=== PATIENT | female | born 1955 | race Caucasian/White ===

== ENCOUNTER 2017-07-29 14:25 | Inpatient (IN) | payer OTHER ==
[2017-07-29 17:18] LABS: Basophils % (Auto) 0.5 % (0.0-1.8); Eosinophils % (Auto) 0.4 % (0.0-4.3); Hematocrit 39.9 % (30.3-42.9); Hemoglobin 14.2 gm/dl (10.1-14.3); Mean Corpuscular HGB Conc 36 % (30-34); Mean Corpuscular Hemoglobin 32 pg (28-32); Mean Corpuscular Volume 91 fl (79-97); Platelet Count 266 K/mm3 (140-440); Red Cell Distribution Width 12.1 % (13.2-15.2)
[2017-07-29 17:36] LABS: INR 1.01 (0.87-1.13)
[2017-07-29 17:38] LABS: Partial Thromboplastin Time 30.9 Sec. (24.2-36.6)
[2017-07-29 17:40] LABS: Alanine Aminotransferase 85 units/L (7-56); Albumin 4.5 g/dL (3.9-5); Albumin/Globulin Ratio 1.6 %; Alkaline Phosphatase 137 units/L (35-129); Anion Gap 17 mmol/L; BUN/Creatinine Ratio 16; Blood Urea Nitrogen 8 mg/dL (7-17); Calcium 9.2 mg/dL (8.4-10.2); Carbon Dioxide 29 mmol/L (22-30); Chloride 96.3 mmol/L (98-107); Glucose 99 mg/dL (65-100); Potassium 4.1 mmol/L (3.6-5.0); Sodium 138 mmol/L (137-145); Total Protein 7.3 g/dL (6.3-8.2)
--- NOTE | 2017-07-29 19:48 | Cat Scan Report ---
FINAL REPORT EXAM: CT HEAD/BRAIN WO CON HISTORY: headache TECHNIQUE: CT head without contrast PRIORS: None. FINDINGS: No acute intra-axial or extra-axial hemorrhage is identified. There is no evidence of midline shift or mass effect. The ventricles and sulci are within normal limits. Harkins-white matter differentiation is intact. No acute parenchymal abnormalities seen. Bony calvarium is grossly intact. Visualized portions of the mastoids and paranasal sinuses are unremarkable. IMPRESSION: Negative CT head
[2017-07-29 20:11] LABS: Bilirubin,Urine NEG (Negative); Blood,Urine SM (Negative); Ketones,Urine NEG (Negative); Leukocyte Esterase,Urine TR (Negative); Nitrite,Urine NEG (Negative); Protein,Urine <15 mg/dL mg/dL (Negative); Urobilinogen,Urine < 2.0 mg/dL (<2.0)
[2017-07-29] MEDS ORDERED: PLAVIX PO ONE (20:12)
--- NOTE | 2017-07-29 20:14 | Emergency Department Report ---
HPI - General Chief Complaint: Headache Time Seen by Provider: 07/29/17 19:17 - HPI HPI: Room 30 The patient is a 62 -year-old female presented with a chief complaint of headache and left-sided numbness. The patient states her symptoms began 2 days ago with back pain described as cramping and aching in nature associated with a global headache. Patient states she also had chills causing her to shake. The patient states this morning at 04:00 she continued to have chills but then noticed left hand and left foot paresthesia. The patient also noticed redness of the left eye at this time but denies pain. Patient denies dysarthria. Location: [See above] Duration: Constant since 04:00 Quality: Numbness Severity: Moderate Modifying factors: [see above] Context: [see above] Mode of transportation: [not driving] ED Past Medical Hx - Past Medical History Previous Medical History?: Yes Hx Hypertension: Yes Additional medical history: Graves' disease - Surgical History Past Surgical History?: Yes Hx Breast Surgery: Yes (Cyst removed from right breast) Additional Surgical History: thyroid. occulo-plastic surgery. right foot surgery - Family History Family history: no significant - Social History Smoking Status: Never Smoker Substance Use Type: Alcohol (occasional) - Medications Home Medications: Home Medications Medication Instructions Recorded Confirmed Last Taken Type Cetirizine HCl [ZyrTEC] 10 mg PO ONCE 02/04/16 02/04/16 Unknown History Zolpidem [Ambien] 5 mg PO QHS PRN 02/04/16 02/04/16 Unknown History Potassium Chloride [K-Dur] 20 meq PO QDAY #30 tablet 02/07/16 Unknown Rx Triamter/Hctz 37.5-25 mg 0.5 each PO QDAY #15 tablet 02/07/16 Unknown Rx [Maxzide-25] ED Review of Systems ROS: Stated complaint: HEADACHE, LEFT EYE RED,ABDOMINAL PAIN Other details as noted in HPI Comment: All other systems reviewed and negative Constitutional: chills. denies: fever Eyes: other (subconjunctival hemorrhage). denies: eye pain, eye discharge, vision change ENT: denies: ear pain, throat pain Respiratory: denies: cough, shortness of breath, wheezing Cardiovascular: denies: chest pain, palpitations Endocrine: no symptoms reported Gastrointestinal: denies: abdominal pain, nausea, diarrhea Genitourinary: denies: urgency, dysuria, discharge Musculoskeletal: denies: back pain, joint swelling, arthralgia Skin: denies: rash, lesions Neurological: headache, paresthesias Psychiatric: denies: anxiety, depression Hematological/Lymphatic: denies: easy bleeding, easy bruising Physical Exam - Physical Exam Vital Signs: Vital Signs 07/29/17 15:01 Temperature 99.7 F H Pulse Rate 87 Respiratory 18 Rate Blood Pressure 154/68 O2 Sat by Pulse 98 Oximetry Physical Exam: GENERAL: The patient is well-developed well-nourished female lying on stretcher not appearing to be in acute distress. [] HEENT: Normocephalic. Atraumatic. Extraocular motions are intact. Patient has moist mucous membranes. OS: Subconjunctival hemorrhage along the sclera from the 7:00 to 11 o'clock position NECK: Supple. No meningitic signs are noted. Trachea midline CHEST/LUNGS: Clear to auscultation. There is no respiratory distress noted. HEART/CARDIOVASCULAR: Regular. There is no tachycardia. There is no gallop rub or murmur. ABDOMEN: Abdomen is soft, nontender. Patient has normal bowel sounds. There is no abdominal distention. SKIN: There is no rash. There is no edema. There is no diaphoresis. NEURO: The patient is awake, alert, and oriented. The patient is cooperative. The patient has no focal neurologic deficits. The patient has normal speech. Cranial nerves II through XII grossly intact, no drift MUSCULOSKELETAL: There is no evidence of acute injury. ED Course Vital Signs 07/29/17 15:01 Temperature 99.7 F H Pulse Rate 87 Respiratory 18 Rate Blood Pressure 154/68 O2 Sat by Pulse 98 Oximetry ED Medical Decision Making - Lab Data Result diagrams: 07/29/17 17:00 07/29/17 17:00 Laboratory Tests 07/29/17 07/29/17 07/29/17 17:00 17:00 17:00 WBC 6.0 RBC 4.40 Hgb 14.2 Hct 39.9 MCV 91 MCH 32 MCHC 36 H RDW 12.1 L Plt Count 266 Lymph % (Auto) 23.9 [place] % (Auto) 6.5 Eos % (Auto) 0.4 Baso % (Auto) 0.5 Lymph # 1.4 [place] # 0.4 Eos # 0.0 Baso # 0.0 Seg Neutrophils % 68.7 Seg Neutrophils # 4.1 PT INR APTT Sodium 138 Potassium 4.1 Chloride 96.3 L Carbon Dioxide 29 Anion Gap 17 BUN 8 Creatinine 0.5 L Estimated GFR > 60 BUN/Creatinine Ratio 16 Glucose 99 Calcium 9.2 Total Bilirubin 0.30 AST 54 H ALT 85 H Alkaline Phosphatase 137 H Troponin T < 0.010 Total Protein 7.3 Albumin 4.5 Albumin/Globulin Ratio 1.6 TSH 1.360 Urine Color Urine Turbidity Urine pH Ur Specific [place] Urine Protein Urine Glucose (UA) Urine Ketones Urine Blood Urine Nitrite Urine Bilirubin Urine Urobilinogen Ur Leukocyte Esterase Urine WBC (Auto) Urine RBC (Auto) U Epithel Cells (Auto) 07/29/17 07/29/17 17:00 19:58 WBC RBC Hgb Hct MCV MCH MCHC RDW Plt Count Lymph % (Auto) [place] % (Auto) Eos % (Auto) Baso % (Auto) Lymph # [place] # Eos # Baso # Seg Neutrophils % Seg Neutrophils # PT 13.8 INR 1.01 APTT 30.9 Sodium Potassium Chloride Carbon Dioxide Anion Gap BUN Creatinine Estimated GFR BUN/Creatinine Ratio Glucose Calcium Total Bilirubin AST ALT Alkaline Phosphatase Troponin T Total Protein Albumin Albumin/Globulin Ratio TSH Urine Color Yellow Urine Turbidity Clear Urine pH 7.0 Ur Specific [place] 1.010 Urine Protein <15 mg/dl Urine Glucose (UA) Neg Urine Ketones Neg Urine Blood Sm Urine Nitrite Neg Urine Bilirubin Neg Urine Urobilinogen < 2.0 Ur Leukocyte Esterase Tr Urine WBC (Auto) 13.0 H Urine RBC (Auto) 2.0 U Epithel Cells (Auto) 2.0 - EKG Data -: EKG Interpreted by Me EKG shows normal: sinus rhythm Rate: normal - EKG Data When compared to previous EKG there are: no significant change Interpretation: unchanged when compared t (07/15/2010) - Radiology Data Radiology results: report reviewed (CT head), image reviewed (chest x-ray, CT head) interpreted by me: Chest x-ray-no focal infiltrates, no pneumothorax CT head (read by radiologist)-negative CT head - Differential Diagnosis CVA, subconjunctival hemorrhage, pyelonephritis, UTI Critical care attestation.: If time is entered above; I have spent that time in minutes in the direct care of this critically ill patient, excluding procedure time. ED Disposition Clinical Impression: CVA (cerebral vascular accident), UTI (urinary tract infection), Subconjunctival hemorrhage of left eye Disposition: DC-09 OP ADMIT IP TO THIS HOSP Is pt being admited?: Yes Does the pt Need Aspirin: No Condition: Fair Referrals: MEIR THORNTON MD [Primary Care Provider] - 3-5 Days Time of Disposition: 20:19 (hospitalist notified)
[2017-07-29] MEDS ORDERED: ZOFRAN IV ONE (20:16)
[2017-07-29] MEDS ORDERED: MORPHINE IV ONE (20:16)
[2017-07-29] MEDS ORDERED: MORPHINE ONE (20:24)
--- NOTE | 2017-07-29 20:45 | History and Physical Report ---
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 Presents with a chief complaint of left hand numbness and left foot numbness which is being going on since approximately 4 AM. Numbness was associated with an headache that has been gone on for approximately 3 days. Patient states this headache is different from her normal migraine headaches that she has. This headache is more all-around the head front and back. Patient denies any new stressors. Patient also gives a vague history of some flank pain and which she was seeing her primary care physician 4. Patient denies any vision changes no chest pain no shortness of breath no different exertion. Patient is active her and her goes to the gym and has had no symptoms at all until this episode. Patient also has vague complaints of low-grade fever. And had an episode of eye redness yesterday. Past History Past Medical History: hyperthyroidism, migraines. denies: acute CT, atrial fib , arrhythmia, arthritis, cancer, COPD, diabetes, DVT, heart failure, hypertension, hyperlipidemia, hypothyroidism, liver disease, PVD, pulmonary embolism, renal failure, seizures, stroke, sarcoidosis Past Surgical History: Other (oculoplastic surgery thyroidectomy) Social history: , lives with family, full code. denies: smoking, alcohol abuse Family history: no significant family history Medications and Allergies Allergies Allergy/AdvReac Type Severity Reaction Status Date / Time acetaminophen [From Percocet] Allergy Hives Verified 02/05/16 04:40 aspirin Allergy Hives Verified 02/04/16 13:08 Latex, Natural Rubber Allergy Hives Verified 02/04/16 13:08 oxycodone HCl [From Percocet] Allergy Hives Verified 02/05/16 04:40 Home Medications Medication Instructions Recorded Confirmed Last Taken Type Cetirizine HCl [ZyrTEC] 10 mg PO ONCE 02/04/16 02/04/16 Unknown History Zolpidem [Ambien] 5 mg PO QHS PRN 02/04/16 02/04/16 Unknown History Potassium Chloride [K-Dur] 20 meq PO QDAY #30 tablet 02/07/16 Unknown Rx Triamter/Hctz 37.5-25 mg 0.5 each PO QDAY #15 tablet 02/07/16 Unknown Rx [Maxzide-25] Review of Systems Constitutional: chills, chronic headaches, no weight loss, no weight gain, no night sweats, no anorexia, no fatigue, no weakness, no malaise, no lethargy, no poor appetite, no daytime sleepiness, no chronic pain Ears, nose, mouth and throat: headache, other (tendinitis), no ear pain, no ear discharge, no decreased hearing, no nasal congestion, no nasal discharge, no sinus pressure, no epistaxis, no bleeding gums, no mouth pain, no dysphagia, no hoarseness, no swelling in mouth, no swelling in throat, no voice changes, no pain front of neck Cardiovascular: no chest pain, no orthopnea, no rapid/irregular heart beat, no lightheadedness, no shortness of breath, no dyspnea on exertion, no paroxysmal nocturnal dyspnea, no claudication, no leg edema, no decreased exercise tolerance Respiratory: no cough, no cough with sputum, no excessive sputum, no hemoptysis , no shortness of breath, no congestion, no pleurisy, no pain, no pain on inspiration, no respiratory infections, no other Gastrointestinal: abdominal pain, no nausea, no vomiting, no diarrhea, no constipation, no change in bowel habits, no hematemesis, no coffee ground emesis , no BRBPR, no hematochezia, no loss of appetite, no heartburn, no indigestion, no excessive gas, no dyspepsia/bloating, no early satiety Genitourinary Female: no dyspareunia, no pelvic pain, no urinary frequency, no urgency, no stress incontinence, no hematuria, no vaginal discharge, no hot flashes, no prolapse symptoms Menstruation: post hysterectomy Musculoskeletal: low back pain, no neck stiffness, no neck pain, no arm numbness /tingling, no shooting leg pain, no leg numbness/tingling, no hot joints, no muscle weakness, no muscle cramps, no atrophy, no limitation of motion, no fractures, no loss of height, no prior amputations, no arthritis Integumentary: no color changes Neurological: parathesias, sensory deficit, no transient paralysis, no weakness , no tingling, no seizures, no syncope, no tremors, no lack of coordination, no headaches, no migraines, no aphasia, no change in speech, no confusion, no double vision, no loss of vision, no burning pain, no spasticity Psychiatric: no anxiety, no sleep disturbances, no change in appetite, no change in libido, no hallucinations, no depression, no anhedonia, no difficulties concentrating, no confusion, no irritability, no sadness/ tearfullness Endocrine: no heat intolerance, no polyphagia, no weight change, no increase in ring/shoe/hat size, no proptosis Hematologic/Lymphatic: no easy bruising, no easy bleeding, no lymphedema, no thrombophilia, no other Allergic/Immunologic: no allergic rhinitis, no angioedema Exam - Constitutional Vitals: Temp Pulse Resp BP Pulse Ox 99.7 F H 87 18 154/68 98 07/29/17 15:01 07/29/17 15:01 07/29/17 15:01 07/29/17 15:01 07/29/17 15:01 General appearance: Present: no acute distress, well-nourished, other (patient has some conjunctival hemorrhage left eye. Not involving the pupil.) - EENT Eyes: Present: PERRL ENT: hearing intact, clear oral mucosa, other - Neck Neck: Present: supple, normal ROM - Respiratory Respiratory effort: normal Respiratory: bilateral: CTA - Cardiovascular Heart Sounds: Present: S1 & S2. Absent: rub, click - Extremities Extremities: pulses symmetrical, No edema Peripheral Pulses: within normal limits - Abdominal General gastrointestinal: Present: soft, non-tender, non-distended, normal bowel sounds Female genitourinary: Present: normal - Integumentary Integumentary: Present: clear, warm, dry - Musculoskeletal Musculoskeletal: gait normal, strength equal bilaterally - Psychiatric Psychiatric: appropriate mood/affect, intact judgment & insight - Neurologic Neurologic: CNII-XII intact, moves all extremities, other (patient has subjective numbness only on the plantar aspect of her left foot numbness paresthesia no where else. And has it on both plantar and dorsal aspect of left hand.) Results - Labs CBC & Chem 7: 07/29/17 17:00 07/29/17 17:00 Labs: Laboratory Last Values WBC 6.0 K/mm3 (4.5-11.0) 07/29/17 17:00 RBC 4.40 M/mm3 (3.65-5.03) 07/29/17 17:00 Hgb 14.2 gm/dl (10.1-14.3) 07/29/17 17:00 Hct 39.9 % (30.3-42.9) 07/29/17 17:00 MCV 91 fl (79-97) 07/29/17 17:00 MCH 32 pg (28-32) 07/29/17 17:00 MCHC 36 % (30-34) H 07/29/17 17:00 RDW 12.1 % (13.2-15.2) L 07/29/17 17:00 Plt Count 266 K/mm3 (140-440) 07/29/17 17:00 Lymph % (Auto) 23.9 % (13.4-35.0) 07/29/17 17:00 [place] % (Auto) 6.5 % (0.0-7.3) 07/29/17 17:00 Eos % (Auto) 0.4 % (0.0-4.3) 07/29/17 17:00 Baso % (Auto) 0.5 % (0.0-1.8) 07/29/17 17:00 Lymph # 1.4 K/mm3 (1.2-5.4) 07/29/17 17:00 [place] # 0.4 K/mm3 (0.0-0.8) 07/29/17 17:00 Eos # 0.0 K/mm3 (0.0-0.4) 07/29/17 17:00 Baso # 0.0 K/mm3 (0.0-0.1) 07/29/17 17:00 Seg Neutrophils % 68.7 % (40.0-70.0) 07/29/17 17:00 Seg Neutrophils # 4.1 K/mm3 (1.8-7.7) 07/29/17 17:00 PT 13.8 Sec. (12.2-14.9) 07/29/17 17:00 INR 1.01 (0.87-1.13) 07/29/17 17:00 APTT 30.9 Sec. (24.2-36.6) 07/29/17 17:00 Sodium 138 mmol/L (137-145) 07/29/17 17:00 Potassium 4.1 mmol/L (3.6-5.0) 07/29/17 17:00 Chloride 96.3 mmol/L (98-107) L 07/29/17 17:00 Carbon Dioxide 29 mmol/L (22-30) 07/29/17 17:00 Anion Gap 17 mmol/L 07/29/17 17:00 BUN 8 mg/dL (7-17) 07/29/17 17:00 Creatinine 0.5 mg/dL (0.7-1.2) L 07/29/17 17:00 Estimated GFR > 60 ml/min 07/29/17 17:00 BUN/Creatinine Ratio 16 % 07/29/17 17:00 Glucose 99 mg/dL (65-100) 07/29/17 17:00 Calcium 9.2 mg/dL (8.4-10.2) 07/29/17 17:00 Total Bilirubin 0.30 mg/dL (0.1-1.2) 07/29/17 17:00 AST 54 units/L (5-40) H 07/29/17 17:00 ALT 85 units/L (7-56) H 07/29/17 17:00 Alkaline Phosphatase 137 units/L (35-129) H 07/29/17 17:00 Troponin T < 0.010 ng/mL (0.00-0.029) 07/29/17 17:00 Total Protein 7.3 g/dL (6.3-8.2) 07/29/17 17:00 Albumin 4.5 g/dL (3.9-5) 07/29/17 17:00 Albumin/Globulin Ratio 1.6 % 07/29/17 17:00 TSH 1.360 mlU/mL (0.270-4.200) 07/29/17 17:00 Urine Color Yellow (Yellow) 07/29/17 19:58 Urine Turbidity Clear (Clear) 07/29/17 19:58 Urine pH 7.0 (5.0-7.0) 07/29/17 19:58 Ur Specific [place] 1.010 (1.003-1.030) 07/29/17 19:58 Urine Protein <15 mg/dl mg/dL (Negative) 07/29/17 19:58 Urine Glucose (UA) Neg mg/dL (Negative) 07/29/17 19:58 Urine Ketones Neg mg/dL (Negative) 07/29/17 19:58 Urine Blood Sm (Negative) 07/29/17 19:58 Urine Nitrite Neg (Negative) 07/29/17 19:58 Urine Bilirubin Neg (Negative) 07/29/17 19:58 Urine Urobilinogen < 2.0 mg/dL (<2.0) 07/29/17 19:58 Ur Leukocyte Esterase Tr (Negative) 07/29/17 19:58 Urine WBC (Auto) 13.0 /HPF (0.0-6.0) H 07/29/17 19:58 Urine RBC (Auto) 2.0 /HPF (0.0-6.0) 07/29/17 19:58 U Epithel Cells (Auto) 2.0 /HPF (0-13.0) 07/29/17 19:58 - Imaging and Cardiology Chest x-ray: image reviewed CT Scan - head: report reviewed, image reviewed Assessment and Plan Advance Directives: Yes VTE prophylaxis?: Chemical Plan of care discussed with patient/family: Yes - Patient Problems (1) CVA (cerebral vascular accident) Current Visit: Yes Status: Acute Qualifiers: CVA mechanism: C Precerebral and cerebral artery: P Laterality of affected vessel: L Plan to address problem: At this particular time and likely CVA. Patient did not have any major risk factors. The description of patient as numbness does not follow any anatomic distribution that I will suspect CVA. Patient has paresthesia of hand and plantar aspect of the left foot. No motor abnormalities only sensory. Associated with headache. While CVA remains in the differential would need to rule out migraines, headaches, seizure and anxiety. Will obtain MRI of brain neurologic consult. We'll also treat what I feel to be the underlying etiology of headache. Patient's primary care physician and placed on beta lazara for prophylaxis for headache. (2) Subconjunctival hemorrhage of left eye Current Visit: Yes Status: Acute Plan to address problem: Observation. Her vision is not affected. (3) Hypothyroidism Current Visit: Yes Status: Acute Qualifiers: Hypothyroidism type: H Plan to address problem: Patient states every time she takes Synthroid she gets tinnitus. Will obtain TSH. May need to change to levothyroxine versus Rudolph Thyroid. Can be followed up on outpatient basis. We'll hold for now and hopefully this is not causing her headache.
[2017-07-29] MEDS ORDERED: PHENERGAN PR PRN (20:53)
[2017-07-29] MEDS ORDERED: AMBIEN PO PRN (20:53)
[2017-07-29] MEDS ORDERED: MORPHINE IV PRN (20:53)
[2017-07-29] MEDS ORDERED: DULCOLAX PR PRN ×2 (20:53)
[2017-07-29] MEDS ORDERED: ZOFRAN IV PRN ×2 (20:53)
[2017-07-29] MEDS ORDERED: REGLAN PO PRN (20:53)
[2017-07-29] MEDS ORDERED: SODIUM CHLORIDE FLUSH SYRINGE 10 ML IV PRN (20:53)
[2017-07-29] MEDS ORDERED: TYLENOL PO PRN ×2 (20:53)
[2017-07-29] MEDS ORDERED: MILK OF MAGNESIA PO PRN ×2 (20:53)
[2017-07-29] MEDS: ZOCOR PO SCH (23:52)
--- NOTE | 2017-07-30 07:08 | XRay Report ---
Single view chest: Compared to 02/04/16. History: Dizziness. Findings: Normal cardiomediastinal silhouette the trachea is midline. No consolidation, pneumothorax or pleural effusion. Impression: No acute cardiopulmonary findings.
[2017-07-30] MEDS ORDERED: LOVENOX SUB-Q SCH (10:00)
--- NOTE | 2017-07-30 11:21 | Progress Note ---
Assessment and Plan Assessment and plan: Acute CVA with left hemiparesis. Follow-up MRI/MRA. Check echocardiogram. Neurology consultation pending. PT/OT evaluation. Hypothyroidism. TSH within normal limits. Continue Synthroid. Subconjunctival hemorrhage of left eye. Supportive care. History Interval history: No new issues overnight. Hospitalist Physical - Constitutional Vitals: Temp Pulse Resp BP Pulse Ox 99.0 F 80 18 127/68 96 07/30/17 08:31 07/30/17 08:31 07/30/17 08:31 07/30/17 08:31 07/30/17 08:31 General appearance: Present: no acute distress, well-nourished, other (patient has some conjunctival hemorrhage left eye. Not involving the pupil.) - EENT Eyes: Present: PERRL, EOM intact ENT: hearing intact, clear oral mucosa, dentition normal - Neck Neck: Present: supple, normal ROM - Respiratory Respiratory effort: normal Respiratory: bilateral: CTA - Cardiovascular Rhythm: regular Heart Sounds: Present: S1 & S2. Absent: gallop, rub - Extremities Extremities: no ischemia, No edema, Full ROM - Abdominal General gastrointestinal: soft, non-tender, non-distended, normal bowel sounds - Integumentary Integumentary: Present: clear, warm, dry - Neurologic Neurologic: CNII-XII intact, moves all extremities Results - Labs CBC & Chem 7: 07/29/17 17:00 07/29/17 17:00 Labs: Laboratory Last Values WBC 6.0 K/mm3 (4.5-11.0) 07/29/17 17:00 RBC 4.40 M/mm3 (3.65-5.03) 07/29/17 17:00 Hgb 14.2 gm/dl (10.1-14.3) 07/29/17 17:00 Hct 39.9 % (30.3-42.9) 07/29/17 17:00 MCV 91 fl (79-97) 07/29/17 17:00 MCH 32 pg (28-32) 07/29/17 17:00 MCHC 36 % (30-34) H 07/29/17 17:00 RDW 12.1 % (13.2-15.2) L 07/29/17 17:00 Plt Count 266 K/mm3 (140-440) 07/29/17 17:00 Lymph % (Auto) 23.9 % (13.4-35.0) 07/29/17 17:00 [place] % (Auto) 6.5 % (0.0-7.3) 07/29/17 17:00 Eos % (Auto) 0.4 % (0.0-4.3) 07/29/17 17:00 Baso % (Auto) 0.5 % (0.0-1.8) 07/29/17 17:00 Lymph # 1.4 K/mm3 (1.2-5.4) 07/29/17 17:00 [place] # 0.4 K/mm3 (0.0-0.8) 07/29/17 17:00 Eos # 0.0 K/mm3 (0.0-0.4) 07/29/17 17:00 Baso # 0.0 K/mm3 (0.0-0.1) 07/29/17 17:00 Seg Neutrophils % 68.7 % (40.0-70.0) 07/29/17 17:00 Seg Neutrophils # 4.1 K/mm3 (1.8-7.7) 07/29/17 17:00 PT 13.8 Sec. (12.2-14.9) 07/29/17 17:00 INR 1.01 (0.87-1.13) 07/29/17 17:00 APTT 30.9 Sec. (24.2-36.6) 07/29/17 17:00 Sodium 138 mmol/L (137-145) 07/29/17 17:00 Potassium 4.1 mmol/L (3.6-5.0) 07/29/17 17:00 Chloride 96.3 mmol/L (98-107) L 07/29/17 17:00 Carbon Dioxide 29 mmol/L (22-30) 07/29/17 17:00 Anion Gap 17 mmol/L 07/29/17 17:00 BUN 8 mg/dL (7-17) 07/29/17 17:00 Creatinine 0.5 mg/dL (0.7-1.2) L 07/29/17 17:00 Estimated GFR > 60 ml/min 07/29/17 17:00 BUN/Creatinine Ratio 16 % 07/29/17 17:00 Glucose 99 mg/dL (65-100) 07/29/17 17:00 Calcium 9.2 mg/dL (8.4-10.2) 07/29/17 17:00 Total Bilirubin 0.30 mg/dL (0.1-1.2) 07/29/17 17:00 AST 54 units/L (5-40) H 07/29/17 17:00 ALT 85 units/L (7-56) H 07/29/17 17:00 Alkaline Phosphatase 137 units/L (35-129) H 07/29/17 17:00 Troponin T < 0.010 ng/mL (0.00-0.029) 07/29/17 17:00 Total Protein 7.3 g/dL (6.3-8.2) 07/29/17 17:00 Albumin 4.5 g/dL (3.9-5) 07/29/17 17:00 Albumin/Globulin Ratio 1.6 % 07/29/17 17:00 Triglycerides 244 mg/dL (2-149) H 07/30/17 06:34 Cholesterol 211 mg/dL (50-199) H 07/30/17 06:34 LDL Cholesterol Direct 109 mg/dL (50-130) 07/30/17 06:34 HDL Cholesterol 54 mg/dL (40-59) 07/30/17 06:34 Cholesterol/HDL Ratio 3.90 % 07/30/17 06:34 TSH 1.360 mlU/mL (0.270-4.200) 07/29/17 17:00 Urine Color Yellow (Yellow) 07/29/17 19:58 Urine Turbidity Clear (Clear) 07/29/17 19:58 Urine pH 7.0 (5.0-7.0) 07/29/17 19:58 Ur Specific [place] 1.010 (1.003-1.030) 07/29/17 19:58 Urine Protein <15 mg/dl mg/dL (Negative) 07/29/17 19:58 Urine Glucose (UA) Neg mg/dL (Negative) 07/29/17 19:58 Urine Ketones Neg mg/dL (Negative) 07/29/17 19:58 Urine Blood Sm (Negative) 07/29/17 19:58 Urine Nitrite Neg (Negative) 07/29/17 19:58 Urine Bilirubin Neg (Negative) 07/29/17 19:58 Urine Urobilinogen < 2.0 mg/dL (<2.0) 07/29/17 19:58 Ur Leukocyte Esterase Tr (Negative) 07/29/17 19:58 Urine WBC (Auto) 13.0 /HPF (0.0-6.0) H 07/29/17 19:58 Urine RBC (Auto) 2.0 /HPF (0.0-6.0) 07/29/17 19:58 U Epithel Cells (Auto) 2.0 /HPF (0-13.0) 07/29/17 19:58
--- NOTE | 2017-07-30 11:30 | Magnetic Resonance Report ---
MRA HEAD WITHOUT CONTRAST INDICATION: Stroke. COMPARISON: Head CT from last evening and 07/23/2009 brain MRI/MRA. FINDINGS: MRA of the head performed without intravenous contrast and demonstrates no evidence of flow-limiting stenosis, occlusion or vascular malformation. Please note that detection of aneurysms less than 5 mm is limited on this exam. CONCLUSION: Normal study of the [place] of [place]. Thank you for the opportunity to participate in this patient's care.
--- NOTE | 2017-07-30 11:31 | Magnetic Resonance Report ---
MRI BRAIN WITHOUT CONTRAST INDICATION: Headache. COMPARISON: Head CT from last evening as also July 2009 MRI/MRA. FINDINGS: Noncontrast multiplanar and multisequence MRI of the brain again demonstrates symmetric, age-appropriate ventricles and sulci. No acute infarct, hemorrhage, mass effect or midline shift. No abnormal extra axial masses or fluid collections. Benign bilateral basal ganglia calcifications. Normal major intracranial vascular flow voids. Normal posterior fossa with symmetric seventh and eighth nerve complexes and preserved basilar cisterns. Normal eye globes. Clear imaged paranasal sinuses and mastoid air cells. Partially empty sella. Cerebellar tonsils may extend approximately 1-2 mm below the foramen magnum in the midline, not strictly meeting Chiari 1 malformation criteria. Normal remainder midline structures. CONCLUSION: No acute intracranial MRI abnormality or significant interval change, as described. Thank you for the opportunity to participate in this patient's care.
[2017-07-30] MEDS: LOVENOX SUB-Q SCH (11:35)
[2017-07-30] MEDS: NORCO 5/325 PO PRN (15:26)
[2017-07-30] MEDS: ZOCOR PO SCH (21:34)
--- NOTE | 2017-07-31 09:06 | Discharge Summary ---
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 The patient also reported a headache which was of duration of approximately 3 days prior to admission. Patient states this headache is different from her normal migraine headaches. Patient denied any dysarthria, dysphagia or weakness. The patient was admitted with diagnosis of CVA and underwent workup with MRI/MRA, echocardiogram and carotid ultrasound. The MRA/MRI and carotid ultrasound were negative. Echocardiogram is pending and will be followed up as an outpatient. Patient had further evaluation with physical therapy who recommended home health PT.. Other issues during the hospital stay included a mild UTI with WBCs of 13.0 on urinalysis. However, patient continued to complain of flank pain.therefore, a CT scan of the abdomen. The pelvis was obtained to assess kidneys. CT scan revealed nonspecific wall thickening of the distal ascending colon with colitis and tumor included in the differential. I discussed the CT findings in detail with the patient. Patient will have follow-up with GI and outpatient colonoscopy. Patient will be treated empirically with Levaquin and Flagyl for 2 weeks. Patient is also to follow up with PCP. Patient will be discharged with secondary prevention of CVA with statin and aspirin as well. Dedicated discharge time 32 minutes. Disposition: -01 TO HOME OR SELFCARE Time spent for discharge: 32 - Discharge Diagnoses (1) CVA (cerebral vascular accident) Status: Acute Qualifiers: CVA mechanism: C Precerebral and cerebral artery: P Laterality of affected vessel: L (2) Hypothyroidism Status: Acute Qualifiers: Hypothyroidism type: H (3) Subconjunctival hemorrhage of left eye Status: Acute (4) UTI (urinary tract infection) Status: Acute Qualifiers: Urinary tract infection type: U Hematuria presence: H Indwelling urinary catheter type: I Encounter type: E Core Measure Documentation - Palliative Care Palliative Care/ Comfort Measures: Not Applicable - Core Measures Any of the following diagnoses?: stroke - Stroke Discharge Requirements Statin for LDL = or >70 mg/dl on DC: Yes Anticoag for atrial fib/atrial flutter: Not Applicable Antithrombotic for ischemic stroke: Yes Exam - Constitutional Vitals: Temp Pulse Resp BP Pulse Ox 99.1 F 72 15 105/56 96 07/31/17 08:08 07/31/17 08:08 07/31/17 08:08 07/31/17 08:08 07/31/17 08:08 General appearance: Present: no acute distress, well-nourished - EENT Eyes: Present: PERRL ENT: hearing intact, clear oral mucosa - Neck Neck: Present: supple, normal ROM - Respiratory Respiratory effort: normal Respiratory: bilateral: CTA - Cardiovascular Heart Sounds: Present: S1 & S2. Absent: rub, click - Extremities Extremities: pulses symmetrical, No edema Peripheral Pulses: within normal limits - Abdominal General gastrointestinal: Present: soft, non-tender, non-distended, normal bowel sounds Female genitourinary: Present: normal - Integumentary Integumentary: Present: clear, warm, dry - Musculoskeletal Musculoskeletal: gait normal, strength equal bilaterally - Psychiatric Psychiatric: appropriate mood/affect, intact judgment & insight - Neurologic Neurologic: CNII-XII intact, moves all extremities Plan Activity: no restrictions Weight Bearing Status: Full Weight Bearing Special Instructions: home health RN (Physical therapy) Additional Instructions: F/U outpatient Colonoscopy with Dr. Cedillo Follow up with: SOL ANGLIN MD [Staff Physician] - 7 Days MEIR THORNTON MD [Primary Care Provider] - 3-5 Days LISA CEDILLO MD [Staff Physician] - 7 Days Prescriptions: Aspirin EC [Aspirin Enteric Coated TAB] 325 mg PO QDAY #30 tablet. Levofloxacin [Levaquin TAB] 500 mg PO QDAY #5 tablet Levofloxacin [Levaquin TAB] 500 mg PO QDAY #14 tablet metroNIDAZOLE [Flagyl] 500 mg PO Q8HR #42 tablet Simvastatin [Zocor TAB] 20 mg PO QHS #30 tablet
--- NOTE | 2017-07-31 11:02 | Progress Note ---
Assessment and Plan Assessment and plan: Acute CVA with left hemiparesis. Follow-up MRI/MRA. Check echocardiogram. Neurology consultation pending. PT/OT evaluation. Hypothyroidism. TSH within normal limits. Continue Synthroid. Subconjunctival hemorrhage of left eye. Supportive care. UTI. Patient complains of bilateral flank pain. We will check CT of abdomen/ pelvis, rule out obstruction/pyelonephritis/perinephric abscess. Start IV antibiotics for today. Disposition. Anticipate discharge in a.m. - Patient Problems (1) CVA (cerebral vascular accident) Current Visit: Yes Status: Acute Qualifiers: CVA mechanism: C Precerebral and cerebral artery: P Laterality of affected vessel: L (2) Hypothyroidism Current Visit: Yes Status: Acute Qualifiers: Hypothyroidism type: H (3) Subconjunctival hemorrhage of left eye Current Visit: Yes Status: Acute (4) UTI (urinary tract infection) Current Visit: Yes Status: Acute Qualifiers: Urinary tract infection type: U Hematuria presence: H Indwelling urinary catheter type: I Encounter type: E History Interval history: No new issues overnight. Hospitalist Physical - Constitutional Vitals: Temp Pulse Resp BP Pulse Ox 99.1 F 72 15 105/56 96 07/31/17 08:08 07/31/17 08:08 07/31/17 08:08 07/31/17 08:08 07/31/17 08:08 General appearance: Present: no acute distress, well-nourished - EENT Eyes: Present: PERRL, EOM intact ENT: hearing intact, clear oral mucosa, dentition normal - Neck Neck: Present: supple, normal ROM - Respiratory Respiratory effort: normal Respiratory: bilateral: CTA - Cardiovascular Rhythm: regular Heart Sounds: Present: S1 & S2. Absent: gallop, rub - Extremities Extremities: no ischemia, No edema, Full ROM - Abdominal General gastrointestinal: soft, non-tender, non-distended, normal bowel sounds - Integumentary Integumentary: Present: clear, warm, dry - Neurologic Neurologic: CNII-XII intact, moves all extremities Results - Labs CBC & Chem 7: 07/29/17 17:00 07/29/17 17:00 Labs: Laboratory Last Values WBC 6.0 K/mm3 (4.5-11.0) 07/29/17 17:00 RBC 4.40 M/mm3 (3.65-5.03) 07/29/17 17:00 Hgb 14.2 gm/dl (10.1-14.3) 07/29/17 17:00 Hct 39.9 % (30.3-42.9) 07/29/17 17:00 MCV 91 fl (79-97) 07/29/17 17:00 MCH 32 pg (28-32) 07/29/17 17:00 MCHC 36 % (30-34) H 07/29/17 17:00 RDW 12.1 % (13.2-15.2) L 07/29/17 17:00 Plt Count 266 K/mm3 (140-440) 07/29/17 17:00 Lymph % (Auto) 23.9 % (13.4-35.0) 07/29/17 17:00 [place] % (Auto) 6.5 % (0.0-7.3) 07/29/17 17:00 Eos % (Auto) 0.4 % (0.0-4.3) 07/29/17 17:00 Baso % (Auto) 0.5 % (0.0-1.8) 07/29/17 17:00 Lymph # 1.4 K/mm3 (1.2-5.4) 07/29/17 17:00 [place] # 0.4 K/mm3 (0.0-0.8) 07/29/17 17:00 Eos # 0.0 K/mm3 (0.0-0.4) 07/29/17 17:00 Baso # 0.0 K/mm3 (0.0-0.1) 07/29/17 17:00 Seg Neutrophils % 68.7 % (40.0-70.0) 07/29/17 17:00 Seg Neutrophils # 4.1 K/mm3 (1.8-7.7) 07/29/17 17:00 PT 13.8 Sec. (12.2-14.9) 07/29/17 17:00 INR 1.01 (0.87-1.13) 07/29/17 17:00 APTT 30.9 Sec. (24.2-36.6) 07/29/17 17:00 Sodium 138 mmol/L (137-145) 07/29/17 17:00 Potassium 4.1 mmol/L (3.6-5.0) 07/29/17 17:00 Chloride 96.3 mmol/L (98-107) L 07/29/17 17:00 Carbon Dioxide 29 mmol/L (22-30) 07/29/17 17:00 Anion Gap 17 mmol/L 07/29/17 17:00 BUN 8 mg/dL (7-17) 07/29/17 17:00 Creatinine 0.5 mg/dL (0.7-1.2) L 07/29/17 17:00 Estimated GFR > 60 ml/min 07/29/17 17:00 BUN/Creatinine Ratio 16 % 07/29/17 17:00 Glucose 99 mg/dL (65-100) 07/29/17 17:00 Calcium 9.2 mg/dL (8.4-10.2) 07/29/17 17:00 Total Bilirubin 0.30 mg/dL (0.1-1.2) 07/29/17 17:00 AST 54 units/L (5-40) H 07/29/17 17:00 ALT 85 units/L (7-56) H 07/29/17 17:00 Alkaline Phosphatase 137 units/L (35-129) H 07/29/17 17:00 Troponin T < 0.010 ng/mL (0.00-0.029) 07/29/17 17:00 Total Protein 7.3 g/dL (6.3-8.2) 07/29/17 17:00 Albumin 4.5 g/dL (3.9-5) 07/29/17 17:00 Albumin/Globulin Ratio 1.6 % 07/29/17 17:00 Triglycerides 244 mg/dL (2-149) H 07/30/17 06:34 Cholesterol 211 mg/dL (50-199) H 07/30/17 06:34 LDL Cholesterol Direct 109 mg/dL (50-130) 07/30/17 06:34 HDL Cholesterol 54 mg/dL (40-59) 07/30/17 06:34 Cholesterol/HDL Ratio 3.90 % 07/30/17 06:34 TSH 1.360 mlU/mL (0.270-4.200) 07/29/17 17:00 Urine Color Yellow (Yellow) 07/29/17 19:58 Urine Turbidity Clear (Clear) 07/29/17 19:58 Urine pH 7.0 (5.0-7.0) 07/29/17 19:58 Ur Specific [place] 1.010 (1.003-1.030) 07/29/17 19:58 Urine Protein <15 mg/dl mg/dL (Negative) 07/29/17 19:58 Urine Glucose (UA) Neg mg/dL (Negative) 07/29/17 19:58 Urine Ketones Neg mg/dL (Negative) 07/29/17 19:58 Urine Blood Sm (Negative) 07/29/17 19:58 Urine Nitrite Neg (Negative) 07/29/17 19:58 Urine Bilirubin Neg (Negative) 07/29/17 19:58 Urine Urobilinogen < 2.0 mg/dL (<2.0) 07/29/17 19:58 Ur Leukocyte Esterase Tr (Negative) 07/29/17 19:58 Urine WBC (Auto) 13.0 /HPF (0.0-6.0) H 07/29/17 19:58 Urine RBC (Auto) 2.0 /HPF (0.0-6.0) 07/29/17 19:58 U Epithel Cells (Auto) 2.0 /HPF (0-13.0) 07/29/17 19:58
[2017-07-31] MEDS: LOVENOX SUB-Q SCH (11:25)
--- NOTE | 2017-07-31 12:33 | Cat Scan Report ---
CT ABDOMEN AND PELVIS WITHOUT CONTRAST: 07/29/17 20:53:00 CLINICAL:Bilateral flank pain. TECHNIQUE: Volumetric acquisition and 1.25 millimeter scan reconstructions from the lung bases through the pelvis. The study was performed without oral contrast. FINDINGS: Abdomen:Normal size kidneys with normal nondilated renal collecting systems and ureters. No urinary calculus identified. Normal liver, bile ducts and gallbladder. Normal stomach, duodenum, pancreas and spleen. Normal adrenal glands. Moderate calcification of the aorta and iliac arteries. Normal inferior vena cava. No ascites and no pneumoperitoneum. The small bowel is normal. Moderate wall thickening of the distal ascending colon. The segment measures approximately 9 cm in length and the wall measures 1 cm maximum thickness. Scattered diverticula of the left colon but no signs of diverticulitis. No right-sided diverticula are identified. The appendix is normal. Pelvis: Normal urinary bladder and rectum. The sigmoid colon is redundant with no diverticulosis. The uterus is borderline enlarged and is deviated to the left of midline. No uterine fibroids or masses are identified. Ovaries are unremarkable. No adnexal mass or free fluid. Bone windows demonstrate no suspicious bone lesion. Multilevel degenerative disease of the lumbar spine. IMPRESSION: 1. Nonspecific wall thickening of the distal ascending colon. Colitis and tumor are considerations. 2. Diverticulosis of the descending colon but no diverticulitis. 3. No urinary calculus. 4. A borderline large uterus but otherwise normal pelvis.
[2017-07-31] MEDS: NORCO 5/325 PO PRN (15:36)
[2017-07-31] MEDS: ZOCOR PO SCH (22:41)
[2017-07-31] MEDS: LEVAQUIN 500MG/100ML 500 MG/100 ML BAG IV SCH (22:46)
[2017-08-01 06:04] LABS: Basophils % (Auto) 0.6 % (0.0-1.8); Hematocrit 38.2 % (30.3-42.9); Hemoglobin 12.8 gm/dl (10.1-14.3); Mean Corpuscular HGB Conc 34 % (30-34); Mean Corpuscular Hemoglobin 31 pg (28-32); Mean Corpuscular Volume 93 fl (79-97); Platelet Count 275 K/mm3 (140-440); Red Blood Count 4.11 M/mm3 (3.65-5.03); Red Cell Distribution Width 12.1 % (13.2-15.2); White Blood Count 5.1 K/mm3 (4.5-11.0)
[2017-08-01 06:08] LABS: Anion Gap 17 mmol/L; BUN/Creatinine Ratio 18; Blood Urea Nitrogen 11 mg/dL (7-17); Carbon Dioxide 30 mmol/L (22-30); Chloride 102.7 mmol/L (98-107); Glucose 101 mg/dL (65-100); Potassium 4.4 mmol/L (3.6-5.0); Sodium 145 mmol/L (137-145)
[2017-08-01] MEDS: LOVENOX SUB-Q SCH (10:31)
[2017-08-01] MEDS: LEVAQUIN 500MG/100ML 500 MG/100 ML BAG IV SCH (10:31)
[2017-08-01 14:55] VITALS: BP 136/61
== END 2017-08-01 13:58 | disposition home or self-care (01) | DRG 65 ==
LOC: ED 14:25 → 3A 20:53
PROVIDERS: ADMIT Internal Medicine; ATTEND Hospitalist
DX: I63.9 Cerebral infarction, unspecified (principal); N39.0 Urinary tract infection, site not specified; G81.94 Hemiplegia, unspecified affecting left nondominant side; R20.0 Anesthesia of skin; I10 Essential (primary) hypertension; E05.00 Thyrotoxicosis with diffuse goiter without thyrotoxic crisis or storm; H57.8 Other specified disorders of eye and adnexa; G43.909 Migraine, unspecified, not intractable, without status migrainosus; E89.0 Postprocedural hypothyroidism; Y83.9 Surgical procedure, unspecified as the cause of abnormal reaction of the patient, or of later complication, without mention of misadventure at the time of the procedure; K52.9 Noninfective gastroenteritis and colitis, unspecified; Z88.6 Allergy status to analgesic agent; Z88.8 Allergy status to other drugs, medicaments and biological substances; Z91.040 Latex allergy status; H11.32 Conjunctival hemorrhage, left eye
CPT/HCPCS: 36415; 70450; 70544; 70551; 71010; 74176; 80048; 80053; 80061; 81001; 82378; 84443; 84484; 85025; 85610; 85730; 93005; 93010; 93306; 93880; J1650; J1956; J2270; J2405

== ENCOUNTER 2018-02-24 10:03 | Outpatient (CLI) | payer OTHER ==
--- NOTE | 2018-02-24 13:20 | Mammography Report ---
BONE DENSITY STUDY: DEFINITIONS: BMD = Bone Mineral Density T-score = BMD related to mean peak bone mass of young adult (mean expressed in Standard Deviation) Z-score = Age matched BMD expressed in SD World Health Organization (WHO) Diagnostic Criteria Normal T-score > -1 SD Osteopenia T-score between -1 and -2.4 SD Osteoporosis T-score -2.5 SD or below FINDINGS: The weighted average BMD of lumbar spine L1-L4 is 0.896 with a T-score of -1.4. The weighted average BMD of hip is 0.719 with a T-score of -1.8. IMPRESSION: The patient's T-score is diagnostic for osteopenia and average relative risk for fracture. NOTE: BMD is not the only risk factor for fracture; also consider factors such as the patient's age, risk of falling, previous osteoporotic fracture, family history of osteoporotic fractures, current smoker, and low body weight. Dick's triangle is a region of interest in femur, predominantly of trabecular bone. It is not a true anatomic site, and ISCD does not recommend its use clinically.
== END 2018-02-24 10:04 | disposition home or self-care (01) ==
LOC: MAMMO 10:03
PROVIDERS: ATTEND Specialist
DX: M85.88 Other specified disorders of bone density and structure, other site (principal)
CPT/HCPCS: 77080

== ENCOUNTER 2019-05-18 14:41 | Emergency (ER) | payer MEDICARE, OTHER ==
--- NOTE | 2019-05-18 14:58 | Emergency Department Report ---
Blank Doc - Documentation Documentation: This is a 64-year-old female that presents with dizziness. Symptoms started a fter going to the gym. This initial assessment/diagnostic orders/clinical plan/treatment(s) is/are subject to change based on patient's health status, clinical progression and re- assessment by fellow clinical providers in the ED. Further treatment and workup at subsequent clinical providers discretion. Patient/guardians urged not to elope from the ED as their condition may be serious if not clinically assessed and managed. Initial orders include: 1- Patient sent to MAIN for further evaluation and treatment 2- labs 3- EKG
[2019-05-18 15:00] VITALS: BP 144/79
[2019-05-18 15:22] LABS: Basophils # (Auto) 0.1 K/mm3 (0.0-0.1); Basophils % (Auto) 0.8 % (0.0-1.8); Eosinophils # (Auto) 0.1 K/mm3 (0.0-0.4); Hematocrit 47.4 % (30.3-42.9); Lymphocytes # (Auto) 1.9 K/mm3 (1.2-5.4); Mean Corpuscular HGB Conc 34 % (30-34); Mean Corpuscular Volume 92 fl (79-97); Monocytes # (Auto) 0.4 K/mm3 (0.0-0.8); Platelet Count 373 K/mm3 (140-440); Red Blood Count 5.18 M/mm3 (3.65-5.03); Red Cell Distribution Width 12.9 % (13.2-15.2)
[2019-05-18 15:38] LABS: Alanine Aminotransferase 19 units/L (7-56); Albumin 4.6 g/dL (3.9-5); BUN/Creatinine Ratio 24; Blood Urea Nitrogen 17 mg/dL (7-17); Calcium 9.9 mg/dL (8.4-10.2); Hemolysis Index 11
--- NOTE | 2019-05-18 15:40 | Cat Scan Report ---
CT HEAD WITHOUT CONTRAST INDICATION / CLINICAL INFORMATION: headache/dizziness. TECHNIQUE: Axial imaging performed from the skull apex through the skull base without the use of cont rast. Sagittal and coronal reformatted images. All CT scans at this location are performed using CT dose reduction for ALARA by means of automated exposure control. COMPARISON: 07/29/2017 FINDINGS: CEREBRAL PARENCHYMA: No significant abnormality. No acute territorial infarct. HEMORRHAGE: None. EXTRA-AXIAL SPACES: Normal in size and morphology for the patient's age. VENTRICULAR SYSTEM: Normal in size and morphology for the patient's age. MIDLINE SHIFT OR HERNIATION: None. CEREBELLUM / BRAINSTEM: No significant abnormality. CALVARIUM: No significant abnormality. ORBITS: Normal as visualized. PARANASAL SINUSES / MASTOID AIR CELLS: Normal as visualized. SOFT TISSUES of HEAD: No significant abnormality. ADDITIONAL FINDINGS: None. IMPRESSION: No acute intracranial abnormality. Signer Name: Lucio Hendrix Jr, MD Signed: 05/18/2019 3:36 PM Workstation Name: [id number]
[2019-05-18] MEDS ORDERED: ANTIVERT PO ONE (17:03)
[2019-05-18] MEDS ORDERED: COMPAZINE PO ONE (17:03)
[2019-05-18] MEDS ORDERED: ZOFRAN ODT PO ONE (17:06)
[2019-05-18] MEDS ORDERED: IBUPROFEN PO ONE (17:07)
[2019-05-18] MEDS ORDERED: BANOPHEN PO ONE (17:23)
[2019-05-18] MEDS ORDERED: FIORICET PO ONE (17:23)
--- NOTE | 2019-05-18 17:25 | Emergency Department Report ---
ED Dizziness HPI - General Chief Complaint: Dizziness Stated Complaint: HEADACHE/NAUSEA/R SHOULDER PAIN/VOMITING/WEAKNESS Time Seen by Provider: 05/18/19 14:57 Source: patient Mode of arrival: Ambulatory Limitations: No Limitations - History of Present Illness Initial Comments: This is a 64-year-old female with a history of thyroid disease on medication followed by sr vice president Dr. Yeager who presents to ED complaining of dizziness that started after she was at the alf yesterday morning. Patient states that she went home and started experiencing an episode of dizziness. Patient states that his dizziness first occurred some years ago after she started taking a thyroid medication. MD Complaint: dizziness - Related Data Home Medications Medication Instructions Recorded Confirmed Last Taken Cetirizine HCl [ZyrTEC 10mg cap] 10 mg PO ONCE PRN 02/04/16 07/30/17 Unknown Zolpidem [Ambien] 10 mg PO QHS PRN 02/04/16 07/30/17 Unknown Previous Rx's Medication Instructions Recorded Last Taken Type Potassium Chloride [K-Dur] 20 meq PO QDAY #30 tablet 02/07/16 07/28/17 10:00 Rx Triamter/Hctz 37.5-25 mg 0.5 each PO QDAY #15 tablet 02/07/16 07/29/17 10:00 Rx [Maxzide-25] Aspirin EC 325 mg PO QDAY #30 tablet. 07/31/17 Unknown Rx Simvastatin (Nf) [Zocor TAB] 20 mg PO QHS #30 tablet 07/31/17 Unknown Rx levoFLOXacin [Levaquin TAB] 500 mg PO QDAY #5 tablet 07/31/17 Unknown Rx levoFLOXacin [Levaquin TAB] 500 mg PO QDAY #14 tablet 08/01/17 Unknown Rx metroNIDAZOLE [Flagyl] 500 mg PO Q8HR #42 tablet 08/01/17 Unknown Rx Butalb/Acetaminophen/Caffeine 1 cap PO Q8HR #20 cap 05/18/19 Unknown Rx [Fioricet 50-300-40 mg CAP] Meclizine [Antivert] 25 mg PO TID PRN #30 tablet 05/18/19 Unknown Rx Allergies Allergy/AdvReac Type Severity Reaction Status Date / Time acetaminophen [From Percocet] Allergy Hives Verified 02/05/16 04:40 aspirin Allergy Hives Verified 02/04/16 13:08 Latex, Natural Rubber Allergy Hives Verified 02/04/16 13:08 oxycodone HCl [From Percocet] Allergy Hives Verified 02/05/16 04:40 ED Review of Systems ROS: Stated complaint: HEADACHE/NAUSEA/R SHOULDER PAIN/VOMITING/WEAKNESS Other details as noted in HPI Comment: All other systems reviewed and negative ED Past Medical Hx - Past Medical History Hx Hypertension: Yes Hx Heart Attack/AMI: No Hx Congestive Heart Failure: No Hx Diabetes: No Hx Deep Vein Thrombosis: No Hx Pulmonary Embolism: No Hx Liver Disease: No Hx Headaches / Migraines: Yes Hx Asthma: No Hx COPD: No Hx Tuberculosis: No Hx HIV: No Additional medical history: Graves' disease - Surgical History Hx Coronary Stent: No Hx Open Heart Surgery: No Hx Pacemaker: No Hx Internal Defibrillator: No Hx Cholecystectomy: No Hx Appendectomy: No Hx Breast Surgery: Yes (Cyst removed from right breast) Additional Surgical History: thyroid. occulo-plastic surgery. right foot surgery - Social History Smoking Status: Never Smoker Substance Use Type: None - Medications Home Medications: Home Medications Medication Instructions Recorded Confirmed Last Taken Type Cetirizine HCl [ZyrTEC 10mg cap] 10 mg PO ONCE PRN 02/04/16 07/30/17 Unknown History Zolpidem [Ambien] 10 mg PO QHS PRN 02/04/16 07/30/17 Unknown History Potassium Chloride [K-Dur] 20 meq PO QDAY #30 tablet 02/07/16 07/30/17 07/28/17 10:00 Rx Triamter/Hctz 37.5-25 mg 0.5 each PO QDAY #15 tablet 02/07/16 07/30/17 07/29/17 10:00 Rx [Maxzide-25] Aspirin EC 325 mg PO QDAY #30 tablet. 07/31/17 Unknown Rx Simvastatin (Nf) [Zocor TAB] 20 mg PO QHS #30 tablet 07/31/17 Unknown Rx levoFLOXacin [Levaquin TAB] 500 mg PO QDAY #5 tablet 07/31/17 Unknown Rx levoFLOXacin [Levaquin TAB] 500 mg PO QDAY #14 tablet 08/01/17 Unknown Rx metroNIDAZOLE [Flagyl] 500 mg PO Q8HR #42 tablet 08/01/17 Unknown Rx Butalb/Acetaminophen/Caffeine 1 cap PO Q8HR #20 cap 08/08/19 Unknown Rx [Fioricet 50-300-40 mg CAP] Meclizine [Antivert] 25 mg PO TID PRN #30 tablet 05/18/19 Unknown Rx ED Physical Exam - General Limitations: No Limitations General appearance: alert, in no apparent distress - Head Head exam: Present: atraumatic, normocephalic - Eye Eye exam: Present: normal appearance - ENT ENT exam: Present: mucous membranes moist - Neck Neck exam: Present: normal inspection - Respiratory Respiratory exam: Present: normal lung sounds bilaterally. Absent: respiratory distress - Cardiovascular Cardiovascular Exam: Present: regular rate, normal rhythm. Absent: systolic mur mur, diastolic murmur, rubs, gallop - GI/Abdominal GI/Abdominal exam: Present: soft, normal bowel sounds - Extremities Exam Extremities exam: Present: normal inspection - Back Exam Back exam: Present: normal inspection. Absent: CVA tenderness (R), CVA tenderness (L) - Neurological Exam Neurological exam: Present: alert, oriented X3, normal gait - Expanded Neurological Exam Expanded Patient oriented to: Present: person, place, time Speech: Present: fluid speech Cranial nerves: EOM's Intact: Normal Cerebellar function: Finger to Nose: Normal Sensory exam: Upper Extremity Light Touch: Normal, Lower Extremity Light Touch: Normal Motor strength exam: RUE: 5 Best Eye Response (Lois): (4) open spontaneously Best Motor Response (Lois): (6) obeys commands Best Verbal Response ([place]): (5) oriented Lois Total: 15 - Psychiatric Psychiatric exam: Present: normal affect, normal mood - Skin Skin exam: Present: warm, dry, intact, normal color. Absent: rash ED Course Vital Signs 05/18/19 14:58 Temperature 97.9 F Pulse Rate 79 Respiratory 16 Rate Blood Pressure 144/79 O2 Sat by Pulse 99 Oximetry ED Medical Decision Making - Lab Data Result diagrams: 05/18/19 15:05 05/18/19 15:05 - Radiology Data Radiology results: report reviewed, image reviewed CT HEAD WITHOUT CONTRAST INDICATION / CLINICAL INFORMATION: headache/dizziness. TECHNIQUE: Axial imaging performed from the skull apex through the skull base without the use of contrast. Sagittal and coronal reformatted images. All CT scans at this location are performed usi ng CT dose reduction for ALARA by means of automated exposure control. COMPARISON: 07/29/2017 FINDINGS: CEREBRAL PARENCHYMA: No significant abnormality. No acute territorial infarct. HEMORRHAGE: None. EXTRA-AXIAL SPACES: Normal in size and morphology for the patient's age. VENTRICULAR SYSTEM: Normal in size and morphology for the patient's age. MIDLINE SHIFT OR HERNIATION: None. CEREBELLUM / BRAINSTEM: No significant abnormality. CALVARIUM: No significant abnormality. ORBITS: Normal as visualized. PARANASAL SINUSES / MASTOID AIR CELLS: Normal as visualized. SOFT TISSUES of HEAD: No significant abnormality. ADDITIONAL FINDINGS: None. IMPRESSION: No acute intracranial abnormality. Signer Name: Lucio Hendrix Jr, MD Signed: 05/18/2019 3:36 PM Workstation Name: [id number] Transcribed By: TTR Dictated By: LUCIO HENDRIX JR, MD Electronically Authenticated By: LUCIO HENDRIX JR, MD Signed Date/Time: 05/18/19 1536 Critical care attestation.: If time is entered above; I have spent that time in minutes in the direct care of this critically ill patient, excluding procedure time. ED Disposition Clinical Impression: Vertigo, Dizziness Disposition: DC-01 TO HOME OR SELFCARE Is pt being admited?: No Does the pt Need Aspirin: No Condition: Stable Instructions: Vertigo (ED), Dizziness (ED) Additional Instructions: Make sure to follow up with the primary care physician as discussed. Take all your medications as you've been prescribed. If you have any worsening symptoms or develop new symptoms please return to ED immediately. Prescriptions: Meclizine [Antivert] 25 mg PO TID PRN #30 tablet PRN Reason: Vertigo Butalb/Acetaminophen/Caffeine [Fioricet 50-300-40 mg CAP] 1 cap PO Q8HR #20 cap Referrals: LAURYN VENTURA MD [Primary Care Provider] - 3-5 Days GEOVANY ZAVALA MD [Staff Physician] - 3-5 Days HARVINDER VILLATORO MD [Staff Physician] - 3-5 Days Forms: Accompanied Note, Work/School Release Form(ED) Time of Disposition: 17:59
== END 2019-05-18 18:37 | disposition home or self-care (01) ==
LOC: ED 14:41
DX: R42 Dizziness and giddiness (principal); I10 Essential (primary) hypertension; G43.909 Migraine, unspecified, not intractable, without status migrainosus; E05.00 Thyrotoxicosis with diffuse goiter without thyrotoxic crisis or storm; Z98.890 Other specified postprocedural states; Z79.899 Other long term (current) drug therapy; Z91.040 Latex allergy status; Z91.048 Other nonmedicinal substance allergy status; Z88.6 Allergy status to analgesic agent; Z88.8 Allergy status to other drugs, medicaments and biological substances
CPT/HCPCS: 36415; 70450; 80053; 82550; 85025; 93005; 93010; Q0162; Q0163

== ENCOUNTER 2019-09-01 10:24 | Outpatient (CLI) | payer MEDICARE, OTHER ==
[2019-09-01 11:26] LABS: Blood Urea Nitrogen 12 mg/dL (7-17)
--- NOTE | 2019-09-01 13:13 | Magnetic Resonance Report ---
MRI BRAIN WITHOUT CONTRAST INDICATION / CLINICAL INFORMATION: MAIN: HEARING LOSS RT., ACOUTIC NEUROMA. TECHNIQUE: Multiplanar, multisequence MR images of the brain were obtained. COMPARISON: MR brain 07/30/2017 FINDINGS: BRAIN / INTRACRANIAL CONTENTS: Unenhanced and enhanced MR images of the brain were obtained. Some det venice views of the cerebellopontine angles were included. There is no evidence of acoustic neuroma. No abnormal mass or enhancement seen within the region of t he internal auditory canals or cerebellopontine angles. MR images of the brain demonstrate no evidence of acute abnormality. Ventricles and sulci are normal in size and shape. Brain parenchyma is very well preserved for age. There is no evidence of acute ischemic injury, hemorrhage, or mass. There are no abnormal extra-axial fluid collections. Postcontrast images demonstrate no abnormal contrast enhancement. There is been no change when compared to the prior exam. EXTRACRANIAL: Unremarkable CRANIOCERVICAL JUNCTION: No significant abnormality. VASCULAR FLOW-VOIDS: No significant abnormality. IMPRESSION: Negative unenhanced and enhanced MRI of the brain. No evidence of acoustic neuroma. Signer Name: Dallas Pandya MD Signed: 09/01/2019 1:08 PM Workstation Name: [id number]
== END 2019-09-01 10:25 | disposition home or self-care (01) ==
LOC: MRI 10:24
PROVIDERS: ATTEND Otolaryngology
DX: H90.5 Unspecified sensorineural hearing loss (principal)
CPT/HCPCS: 36415; 70553; 82565; 84520; A9577

== ENCOUNTER 2022-03-12 22:05 | Emergency (ER) | payer MEDICARE, OTHER | END 2022-03-13 10:46 | disposition left against medical advice (07) | LOC: ED 22:05 | DX: R51.9 Headache, unspecified (principal); Z53.21 Procedure and treatment not carried out due to patient leaving prior to being seen by health care provider ==

== ENCOUNTER 2022-04-30 12:54 | Outpatient (CLI) | payer MEDICARE, OTHER ==
[2022-04-30 13:51] LABS: Basophils # (Auto) 0.1 K/mm3 (0.0-0.1); Eosinophils # (Auto) 0.4 K/mm3 (0.0-0.4); Eosinophils % (Auto) 7.7 % (0.0-4.3); Hematocrit 37.3 % (30.3-42.9); Hemoglobin 13.4 gm/dl (10.1-14.3); Lymphocytes # (Auto) 2.2 K/mm3 (1.2-5.4); Lymphocytes % (Auto) 40.4 % (13.4-35.0); Mean Corpuscular HGB Conc 36 % (30-34); Mean Corpuscular Volume 93 fl (79-97); Monocytes # (Auto) 0.3 K/mm3 (0.0-0.8); Monocytes % (Auto) 6.3 % (0.0-7.3); Platelet Count 290 K/mm3 (140-440); Red Blood Count 4.03 M/mm3 (3.65-5.03); Red Cell Distribution Width 12.8 % (13.2-15.2)
[2022-04-30 14:08] LABS: Erythrocyte Sedimentation Rate 5 mm/Hr (0-20)
== END 2022-04-30 12:55 | disposition home or self-care (01) ==
LOC: LAB 12:54
PROVIDERS: ATTEND Specialist
DX: G50.0 Trigeminal neuralgia (principal)
CPT/HCPCS: 36415; 85025; 85652; 86140